=== PATIENT | male | born 1990 | race Caucasian/White ===

== ENCOUNTER 2016-10-26 22:22 | Emergency (ER) | payer SELFPAY ==
[2016-10-26] MEDS ORDERED: Tetracaine HCl/PF 0.5% 4 ML Bottle EYELF ONE (22:27)
--- NOTE | 2016-10-26 22:27 | EDM.PDOC ---
ED HPI GENERAL MEDICAL PROBLEM - General Chief Complaint: Eye Problems Stated Complaint: SOMETHING IN EYE [id number] Time Seen by Provider: 10/26/16 22:45 Source of Information: Reports: Patient - History of Present Illness INITIAL COMMENTS - FREE TEXT/NARRATIVE: 26 yo M is here for foreign body in left eye since last night. He was combining last night and felt an object (likely wood) enter his left eye. He put in OTC drops and cotton swab was also used to remove the object. He continues to have left eye pain, redness, and clear watery discharge. He feels his left eye vision is impacted now too. He reports being pretty healthy and is not on any chronic medications. His friends/coworkers drove him to the ER tonight. Left Eye Pain Score (Numeric/FACES): 3 - Related Data Allergies Allergy/AdvReac Type Severity Reaction Status Date / Time No Known Allergies Allergy Verified 10/26/16 22:34 Home Meds: Home Meds . [No Known Home Meds] 10/26/16 [History] ED ROS GENERAL - Review of Systems Review Of Systems: ROS reveals no pertinent complaints other than HPI. ED EXAM GENERAL W FULL EYE - Physical Exam Exam: See Below General Appearance: Alert, WD/WN Comments: PERRL b/l. He has a foreign body that is present along left iris (at the 3 o' clock position). Tetracaine eye drops and fluoroscein were used then attempts were made to remove the foreign body with cotton swabs and an 18 g needle but could not remove it as it is lodged along the iris. The foreign body is likely a piece of wood and is brown in color. There is drainage and erythema along left eye. Neck: Supple Respiratory/Chest: No Respiratory Distress Extremities: Normal Range of Motion Neurological: Alert, Oriented, Normal Gait Skin Exam: Warm, Dry Course - Vital Signs Last Recorded V/S: Last Vital Signs Temp 96.9 F 10/26/16 22:26 Pulse 90 10/26/16 22:26 Resp 18 10/26/16 22:26 BP 161/80 H 10/26/16 22:26 Pulse Ox 100 10/26/16 22:26 - Orders/Labs/Meds Meds: Medications Discontinued Medications Generic Name Dose Route Start Last Admin Trade Name Freq PRN Reason Stop Dose Admin Fluorescein Sodium 1 mg 10/26/16 22:29 10/26/16 22:35 Ful-Bre EYELF 10/26/16 22:30 1 mg ONETIME ONE Administration Tetracaine HCl 1 ml 10/26/16 22:27 10/26/16 22:35 Tetracaine 0.5% Steri-Unit Nettie EYELF 10/26/16 22:28 1 ml ASDIRECTED ONE Administration - Re-Assessments/Exams Free Text/Narrative Re-Assessment/Exam: 10/26/16 22:52 Case discussed with the on-call financial management Dr. Pozo at [facility] in [place] as we could not remove the left eye foreign body in the ER. He recommended fluoroquinolone eye drops and he also recommended that patient can follow up in the Ophthalmology clinic in [place] tomorrow (10-27-16) at 8 am. Departure - Departure Time of Disposition: 22:58 Disposition: Home, Self-Care 01 Condition: Fair Clinical Impression: Eye foreign body Qualifiers: Encounter type: initial encounter Laterality: left Qualified Code(s): T15.92XA - Foreign body on external eye, part unspecified, left eye, initial encounter - Discharge Information Instructions: Eye Foreign Body, [id number] Forms: ED Department Discharge Care Plan Goals: As needed over the counter Tylenol/Ibuprofen. 2 tablets of Roxicodone prescribed. Ciprofloxacin eye drops prescribed. Follow up at [facility]'s Ophthalmology clinic tomorrow (10-27-16) at [address] Have someone drive you to and from [place] tomorrow.
[2016-10-26 22:29] VITALS: BP 161/80
[2016-10-26] MEDS ORDERED: Fluorescein 1 MG Ophth Strip EYELF ONE (22:29)
[2016-10-26] MEDS ORDERED: Ciprofloxacin 0.3% Ophth Soln 2.5 ML Bottle EYELF ONE (23:02)
[2016-10-26] MEDS ORDERED: Acetaminophen/oxyCODONE 325-5 MG Tab ONE (23:02)
[2016-10-26] MEDS ORDERED: Acetaminophen/oxyCODONE 325-5 MG Tab PO ONE (23:02)
[2016-10-26] MEDS ORDERED: Ciprofloxacin 0.3% Ophth Soln 2.5 ML Bottle ONE (23:02)
== END 2016-10-26 23:14 | disposition home or self-care (01) ==
LOC: DL.ED 22:22
DX: T15.82XA Foreign body in other and multiple parts of external eye, left eye, initial encounter (principal)
CPT/HCPCS: 99283; A9270